=== PATIENT | male | born 1955 | race Caucasian/White ===

== ENCOUNTER 2022-12-12 11:33 | Outpatient (REF) | payer MEDICARE, SELFPAY ==
--- NOTE | ~2022-12-12 | XR_ITS ---
EXAMINATION: XR CHEST CLINICAL INFORMATION: Status post and pneumonia, check for resolution. COMPARISON: None available. TECHNIQUE: 2 views of the chest were obtained. XR/XR chest 2V FINDINGS/IMPRESSION: No prior chest x-rays available for comparison. Small, subtle, patchy upper lung field linear densities suggest minimal atelectasis and/or infiltrates. No effusion or pneumothorax is seen. The cardiovascular structures, mediastinum, diaphragm, bones, and soft tissues appear unremarkable.
[2022-12-12 11:52] LABS: MANUAL DIFF FLAG NO
[2022-12-12 12:11] LABS: Basophils Absolute Auto 0.1 X10*3/uL (0.0-0.2); Basophils Percent Auto 0.7 % (0-2); Eosinophils Absolute Auto 1.1 X10*3/uL (0.0-0.4); Hematocrit 42.9 % (42.0-52.0); Hemoglobin 15.3 g/dl (14.0-18.0); Imm Gran Abs Auto 0.01 X10*3/uL (0.00-0.03); Imm Gran Pct Auto 0.1 % (0.0-0.4); Lymphocytes Absolute Auto 1.6 X10*3/uL (1.2-4.9); Mean Corpuscular HGB Conc 35.7 g/dl (31.0-36.0); Mean Corpuscular Hemoglobin 32.8 pg (27.0-33.0); Mean Corpuscular Volume 91.9 fL (80.0-98.0); Mean Platelet Volume 10.3 fL (9.4-12.4); Monocytes Absolute Auto 0.6 X10*3/uL (0.1-1.2); Neutrophils Absolute Auto 3.7 x10*3/uL (2.0-8.3); Neutrophils Percent Auto 52.2 % (45-73); Platelet Count 272 X10*3/uL (160-400); Red Blood Count 4.67 X10*6/uL (4.60-5.80); Red Cell Distribution Width 12.4 % (11.0-16.0); White Blood Count 7.1 X10*3/uL (4.8-10.8)
[2022-12-12 12:19] LABS: Appearance Urine Clear; Color Urine Yellow; Glucose Urine UA Negative (Negative); Leukocyte Esterase Urine Negative (Negative); Nitrite Urine Negative (Negative); PH 5.5 (5.0-9.0); Urine Blood Negative (Negative); Urine Ketones Negative (Negative); Urine Protein Negative (Neg-Trace)
[2022-12-12 13:04] LABS: Alanine Aminotransferase 28 U/L (0-40); Albumin Level 3.9 g/dL (3.5-5.0); Alkaline Phosphatase 72 U/L (39-117); Anion Gap 13 (12-20); Aspartate Amino Transferase 23 U/L (5-37); Bilirubin Total 0.8 mg/dL (0.0-1.0); Blood Urea Nitrogen 15 mg/dL (9-16); Calcium 9.4 mg/dL (8.4-10.2); Carbon Dioxide 26 mmol/L (22-29); Chloride 106 mmol/L (96-108); Cholesterol 182 mg/dL; Estimated Glomerular Filt Rate > 60; Glucose Random 84 mg/dL (60-115); Potassium 4.1 mmol/L (3.3-5.1); Sodium 141 mmol/L (135-145)
[2022-12-12 13:19] LABS: Prostate Specific Antigen 0.47 ng/mL (<0.05-4.0)
== END 2022-12-12 11:34 | disposition home or self-care (01) ==
LOC: HO.LAB 11:33
PROVIDERS: PCP Internal Medicine; Visit Provider Internal Medicine
DX: Z12.5 Encounter for screening for malignant neoplasm of prostate (principal); R35.1 Nocturia; Z87.01 Personal history of pneumonia (recurrent); Z83.2 Family history of diseases of the blood and blood-forming organs and certain disorders involving the immune mechanism
CPT/HCPCS: 36415; 71046; 80053; 81003; 82465; 84153; 85025

== ENCOUNTER 2023-01-16 16:30 | Outpatient (REF) | payer MEDICARE, SELFPAY ==
[2023-01-16 17:41] LABS: Iron 26 mcg/dL (45-160); Percent Iron Saturation 11 % (15-50); Total Iron Binding Capacity 229 mcg/dL (228-428); Unsaturated Iron Binding 203 ug/dL
[2023-01-16 18:01] LABS: Ferritin 406 ng/mL (20-250)
== END 2023-01-16 16:31 | disposition home or self-care (01) ==
LOC: HO.LAB 16:30
PROVIDERS: PCP Internal Medicine; Visit Provider Internal Medicine
DX: Z13.89 Encounter for screening for other disorder (principal); Z83.49 Family history of other endocrine, nutritional and metabolic diseases
CPT/HCPCS: 36415; 82728; 83540

== ENCOUNTER 2023-03-07 09:52 | Outpatient (AMB) | payer MEDICARE, SELFPAY ==
[2023-03-07 09:56] VITALS: BP 142/88; PULSE 71; O2SAT 94
--- NOTE | 2023-03-07 09:56 | A.OFFVIS_ITS ---
Intake Vital Signs 03/07/23 09:56 Weight 191 lb 12.835 oz BP 142/88 H Blood Pressure Location Lt brachial Position Sitting Pulse 71 Pulse Source Pulse Oximeter Pulse Oximetry (%) 94 Oxygen Delivery Method Room Air Intake Visit Reasons: Abnormal CT Chest Intake Note: productive cough x4 months Allergies No Known Allergies Allergy (Verified 03/07/23 10:00) Medication List - Last Reconciled 03/07/23 by Alisha Rao LPN albuterol sulfate 90 mcg/actuation 2 puffs inhalation Q6H PRN loratadine (Claritin) 10 mg PO DAILY HPI Abnormal CT Chest HPI Details 68-year-old gentleman, lifetime nonsmoke r, with no prior personal family history of lung disease referred for evaluation of productive cough ongoing since approximately September of 2022, productive of moderate amount of yellowish sputum and abnormal CT chest. Patient was treated initially at urgent care with several courses of un specified antibiotics, later by his primary care provider Dr. Borjas with another course of antibiotics with no improvement in his cough. Patient also was started on albuterol MDI as needed with some improvement in his coughing, but not sputum production. Also, in January of [address] chest demonstrating with appears to be a multiple inflammatory/infectious nodules with a dominant to cm nodule. He denies any weight loss. Patient states that since August of 2022 his been working for [employer]. He does complain of intermittent environmental allergies. Review of Systems Const Denies daytime sleepiness, Denies excessive sweating, Denies fatigue, Denies fever(s), Denies lethargy, Denies malaise, Denies night sweats, Denies snoring and Denies weight loss Eyes Denies blurry vision and Denies itchy eyes ENT Denies nasal congestion, Denies post nasal drip, Denies sinus pain, Denies sinus pressure and Denies other ( Thrush) Card Denies chest pain, Denies pedal edema, Denies dyspnea, Denies orthopnea and Denies paroxysmal nocturnal dyspnea Resp Reports cough, Denies hemoptysis, Reports excessive phlegm production, Denies dyspnea, Denies snoring and Denies wheezing GI Denies abdominal pain and Denies heartburn Musc Denies myalgias, Denies arthralgias and Denies joint swelling Skin/Breast Denies rash Neuro Denies memory loss and Denies seizure-like activity Psych Denies abnormal sleep pattern, Denies anxiety and Denies memory loss Endo Denies excessive sweating, Denies fatigue and Denies heat intolerance Herb/Lymph Denies easy bruising Aller/Immun Denies itchy eyes, Denies seasonal rhinorrhea and Denies wheezing Physical Exam Vital Signs: Last Vital Signs Pulse 71 03/07/23 09:56 BP 142/88 H 03/07/23 09:56 Pulse Ox 94 03/07/23 09:56 Oxygen Delivery Method Room Air 03/07/23 09:56 Const General: no acute distress and alert Nutritional Appearance: not obese Orientation/consciousness: Other orientation findings ( oriented) HEENT Head: Yes atraumatic Eyes General: appearance normal, both eyes and all related structures Sclerae: sclerae normal EOM: EOMs intact bilaterally Neck Neck: Yes supple Lymphatic: no lymphadenopathy noted Resp Effort & Inspection: normal respiratory effort and no use of accessory muscles Auscultation: clear to auscultation bilaterally Cardio Rate: regular rate Rhythm: regular rhythm Heart sounds: no gallops, no murmurs and no rubs Skin General skin exam: other ( warm) Extrem General: No clubbing, No cyanosis and No edema Assessment & Plan Assessment & Plan (1) Chronic cough: Code(s): R05.3 - Chronic cough Plan: Appears to have an infectious etiology with poor response to at least 3 courses of empiric antibiotics. Will obtain sputum culture to guide further treatment. (2) Abnormal CT scan, chest: Code(s): R93.89 - Abnormal findings on diagnostic imaging of other specified body structures Plan: Results of CT chest reviewed, appears to have inflammatory/infectious etiology. Will proceed with obtaining respiratory culture and directed antibiotic treatment. Will repeat CT chest 3 months after resolution of symptoms. Coding Level of Care Code New Pt Level 4 (58941) Diagnoses Chronic cough R05.[address] scan, chest R93.89
== END 2023-03-07 10:20 | disposition home or self-care (01) ==
PROVIDERS: PCP Internal Medicine; Visit Provider Internal Medicine Pulmonary Disease
DX: R05.3 Chronic cough (principal); R93.89 Abnormal findings on diagnostic imaging of other specified body structures
CPT/HCPCS: 99204

== ENCOUNTER → 2023-03-07 09:52 | Outpatient (BNVA) | payer MEDICARE, SELFPAY | PROVIDERS: PCP Internal Medicine; Visit Provider Internal Medicine Pulmonary Disease | DX: R05.3 Chronic cough (principal); R39.89 Other symptoms and signs involving the genitourinary system | CPT/HCPCS: 99202 ==

== ENCOUNTER 2023-03-10 13:31 | Outpatient (REF) | payer MEDICARE, SELFPAY | END 2023-03-10 13:32 | disposition home or self-care (01) | LOC: HO.LNP 13:31 | PROVIDERS: Visit Provider Internal Medicine Pulmonary Disease | DX: R05.3 Chronic cough (principal) | CPT/HCPCS: 87070; 87205 ==

== ENCOUNTER → 2023-03-31 15:45 | Outpatient (BNVA) | payer MEDICARE, SELFPAY | PROVIDERS: PCP Internal Medicine; Visit Provider Internal Medicine Pulmonary Disease | DX: R93.89 Abnormal findings on diagnostic imaging of other specified body structures (principal); R05.3 Chronic cough | CPT/HCPCS: 99212 ==

== ENCOUNTER 2023-05-01 08:35 | Day surgery (SDC) | payer MEDICARE, SELFPAY ==
[2023-04-28 16:26] VITALS: BMI 27.1
[2023-04-29 15:06] VITALS: BMI 25.8
--- NOTE | 2023-04-30 09:42 | HO.ANESPROP2 ---
Documented by User: Kaley Vásquez NP 04/30/23 09:45 HPI - Anesthesia Eval Consult details Narrative: 68yo M for Bronchoscopy Fiberoptic PMFSH Active Problems Active Problems: All Active Problems (Updated 04/29/23 @ 15:04 by Elidia Gabriel RN) Abnormal CT scan, chest (Acute) Chronic cough (Acute) Past Medical History Medical History Difficulty swallowing pills Surgical History Surgical History Hx of colonoscopy Social History Social History Are you a primary director of critical care to a significant other at home: No Do you presently have visiting nurse or other home services: No Patient Tobacco Use Status: Never used Tobacco Use of substances other than those prescribed or required for medical reasons: No Have you been hit, kicked, punched, or otherwise hurt by someone within the past year? If so, by whom?: No Are you DNR?: No Advance Directives: No Advance Directives Information Provided: Yes Advance Directives on File: No Nutrition Risks: No Nutritional Risk Poor oral hygiene: No Meds Allergies Allergy/AdvReac Type Severity Reaction Status Date / Time No Known Allergies Allergy Verified 05/01/23 08:46 Home Medications Medication Instructions Recorded Confirmed Last Taken Type loratadine 10 mg chewable tablet 10 mg PO DAILY 03/07/23 04/29/23 05/01/23 History (Claritin) Exam Exam Date and Time: April 30, 2023 0942 Height,Weight and Vital Signs: Height 5 ft 11 in Weight 83.915 kg Pertinent Lab Results Pertinent Lab Results: Laboratory Tests 12/12/22 11:50 WBC 7.1 Hgb 15.3 Hct 42.9 Plt Count 272 Sodium 141 Potassium 4.1 Chloride 106 Carbon Dioxide 26 BUN 15 Creatinine 0.80 Assessment and Plan Assessment Anesthesia Assessment: Chart Reviewed Documented by User: Philomena Reeves MD 05/01/23 09:37 HPI - Anesthesia Eval Consult details Narrative: 68yo M for Fiberoptic Bronchoscopy PMFSH Active Problems Active Problems: All Active Problems (Updated 05/01/23 @ 08:25 by Philomena Reeves MD) Abnormal CT scan, chest (Acute) Chronic cough (Acute)- several courses of antibiotics-cough better but still productive of sputum Past Medical History Medical History Difficulty swallowing pills Family History Family history of problems with anesthesia: No Surgical History Surgical History Hx of colonoscopy History of Problems with Anesthesia: No Social History Social History Are you a primary director of critical care to a significant other at home: No Do you presently have visiting nurse or other home services: No Patient Tobacco Use Status: Never used Tobacco Use of substances other than those prescribed or required for medical reasons: No Have you been hit, kicked, punched, or otherwise hurt by someone within the past year? If so, by whom?: No Are you DNR?: No Advance Directives: No Advance Directives Information Provided: Yes Advance Directives on File: No Nutrition Risks: No Nutritional Risk Poor oral hygiene: No Meds Allergies Allergy/AdvReac Type Severity Reaction Status Date / Time No Known Allergies Allergy Verified 05/01/23 08:46 Home Medications Medication Instructions Recorded Confirmed Last Taken Type loratadine 10 mg chewable tablet 10 mg PO DAILY 03/07/23 04/29/23 05/01/23 History (Claritin) Exam Height,Weight and Vital Signs: Height 5 ft 11 in Weight 83.915 kg Vital Signs Temp Pulse Resp BP Pulse Ox O2 Del Method 05/01/23 08:53 97.8 F 65 18 167/82 H 96 Room Air Airway Mallampati Class: III (Overcrowding of teeth anteriorly with narrow anterior oral cavity) TM Dist: >3cm Neck ROM: Full Loose/Missing/Broken Teeth: Yes (Some missing teeth. Denies broken or loose teeth) Heart: RRR Lungs: CTAB Assessment and Plan Assessment Anesthesia Assessment: Anesthesia Plan Discussed Final Anesthetic Review Family History of Problems with Anesthesia: No History of Problems with Anesthesia: No NPO: Yes ASA Class: II Final Preanesthetic Review: No Changes in Pt Med Stat, Meds/Allgs Chart Reviewed, Consent Obtained/Reviewed and Anes Risks/Benef Reviewed Patient Risk: Low Procedure Risk: Low Assessment/Block/Sedation in SS: Assess/Block/Sedation-SS Anesthetic Plan Anesthetic Plan: GA Disposition: Standard PACU
[2023-05-01] VITALS (8 sets, daily range): BP systolic 116–167; BP diastolic 71–84; PULSE 65–82; RESP 14–20; TEMP 36.6–36.7; O2SAT 95–98
[2023-05-01] MEDS: Lactated Ringers 1,000 ML 100 ML IVCONT (08:52)
--- NOTE | 2023-05-01 09:16 | MHC.SHP ---
Pre-Procedural Eval Section A Date of Service: 05/01/23 The patient is an INPATIENT: No Changes since office visit: Yes Patient answered all questions; No Cold of Flu in the past 2 weeks, No New Medical Problems and No Changes in Medication The History & Physical has been completed within 30 days and I have reviewed it.: Yes Section B Chief Complaint: Chronic cough Allergies: Allergies Allergy/AdvReac Type Severity Reaction Status Date / Time No Known Allergies Allergy Verified 05/01/23 08:46 Plan Diagnosis/Plan: Unchanged I have reviewed the history and physical and performed a pertinent physical examination on my patient. No changes have occurred unless specified. Time Spent With Patient Time: Total time managing care of this patient today ____ minutes.
--- NOTE | 2023-05-01 12:18 | P.BOP_ITS ---
Brief Operative Note Date of Service: 05/01/23 Pre-op diagnosis: Chronic cough Post-op diagnosis: same Procedure: Flexible bronchoscopy performed with the ET tube with patient intubated for the procedure. Bronchoscope advanced through the tracheobronchial tree with visualization of tenacious thick mucus plugs in bilateral upper lobes that were cleared down to segmental level with combined bronchoalveolar lavage obtained and sample sent for microbiologic testing. Underlying bronchial mucosa is normal. No endobronchial lesions noted. Patient tolerated the procedure well and was returned to PACU in stable condition. Surgeon: Carlos Walker MD Anesthesia: GETA Was an Auto Research Engineer used for this Procedure?: No Estimated blood loss (mL): 0 Condition: stable Disposition: PACU
== END 2023-05-01 12:32 | disposition home or self-care (01) ==
PROVIDERS: PCP Internal Medicine; Visit Provider Internal Medicine Pulmonary Disease
PROC: 0BJ08ZZ Inspection of Tracheobronchial Tree, Via Natural or Artificial Opening Endoscopic (ICD-10-PCS; CPT 31622; principal; 2023-05-01 10:00)
DX: R05.3 Chronic cough (principal); R09.3 Abnormal sputum; R93.89 Abnormal findings on diagnostic imaging of other specified body structures; Z79.51 Long term (current) use of inhaled steroids
CPT/HCPCS: 31624; 87070; 87077; 87102; 87116; 87205; 87206; J0171; J0330; J1100; J2250; J2405; J3010

== ENCOUNTER → 2023-05-01 08:35 | Outpatient (BNV) | payer MEDICARE, SELFPAY | PROVIDERS: PCP Internal Medicine; Visit Provider Internal Medicine Pulmonary Disease | DX: R05.3 Chronic cough (principal) | CPT/HCPCS: 31624 ==

== ENCOUNTER 2023-06-17 09:44 | Outpatient (AMB) | payer MEDICARE, SELFPAY ==
--- NOTE | 2023-06-17 09:45 | A.OFFVIS_ITS ---
Intake Vital Signs 06/17/23 09:46 Height 5 ft 11 in Weight 201 lb 11.567 oz BMI 28.1 BP 150/82 H Blood Pressure Location Rt brachial Position Sitting Pulse 67 Pulse Source Doppler Pulse Oximetry (%) 95 Oxygen Delivery Method Room Air Intake Visit Reasons: Chronic cough 4wk f/u Allergies No Known Allergies Allergy (Verified 06/17/23 09:47) HPI Chronic cough 4wk f/u HPI Details 68-year-old gentleman, lifetime nonsmoke r, with no prior personal family history of lung disease referred for evaluation of productive cough ongoing since approximately September of 2022, productive of moderate amount of yellowish sputum and abnormal CT chest. Patient was treated initially at urgent care with several courses of un specified antibiotics, later by his primary care provider Dr. Borjas with another course of antibiotics with no improvement in his cough. Patient also was started on albuterol MDI as needed with some improvement in his coughing, but not sputum production. Also, in January of [address] chest demonstrating with appears to be a multiple inflammatory/infectious nodules with a dominant 2 cm nodule. He denies any weight loss. Patient states that since August of 2022 his been working for [employer]. He does complain of intermittent environmental allergies. After the last office patient had bronchoscopy with bronchoalveolar lavage that is growing Aspergillus. He was started on itraconazole and now completed 3 weeks with some improvement in his symptoms. [facility]LY [facility] Medical History Difficulty swallowing pills Surgical History Hx of colonoscopy Social History (Reviewed 06/17/23 @ 09:48 by Jayashree Savage [facility]) Are you a primary home care associate to a significant other at home: No Do you presently have visiting nurse or other home services: No Comment: NONE Patient Tobacco Use Status: Never used Tobacco Review of Systems Const Denies daytime sleepiness, Denies excessive sweating, Denies fatigue, Denies fever(s), Denies lethargy, Denies malaise, Denies night sweats, Denies snoring and Denies weight loss Eyes Denies blurry vision and Denies itchy eyes ENT Denies nasal congestion, Denies post nasal drip, Denies sinus pain, Denies sinus pressure and Denies other ( Thrush) Card Denies chest pain, Denies pedal edema, Denies dyspnea, Denies orthopnea and Denies paroxysmal nocturnal dyspnea Resp Reports cough, Denies hemoptysis, Denies excessive phlegm production, Denies dyspnea, Denies snoring and Denies wheezing GI Denies abdominal pain and Denies heartburn Musc Denies myalgias, Denies arthralgias and Denies joint swelling Skin/Breast Denies rash Neuro Denies memory loss and Denies seizure-like activity Psych Denies abnormal sleep pattern, Denies anxiety and Denies memory loss Endo Denies excessive sweating, Denies fatigue and Denies heat intolerance Herb/Lymph Denies easy bruising Aller/Immun Denies itchy eyes, Denies seasonal rhinorrhea and Denies wheezing Physical Exam Vital Signs: Last Vital Signs Pulse 67 06/17/23 09:46 BP 150/82 H 06/17/23 09:46 Pulse Ox 95 06/17/23 09:46 Oxygen Delivery Method Room Air 06/17/23 09:46 BMI result Body Mass Index 28.1 Const General: no acute distress and alert Nutritional Appearance: not obese Orientation/consciousness: Other orientation findings ( oriented) HEENT Head: Yes atraumatic Eyes General: appearance normal, both eyes and all related structures Sclerae: sclerae normal EOM: EOMs intact bilaterally Neck Neck: Yes supple Lymphatic: no lymphadenopathy noted Resp Effort & Inspection: normal respiratory effort and no use of accessory muscles Auscultation: clear to auscultation bilaterally Cardio Rate: regular rate Rhythm: regular rhythm Heart sounds: no gallops, no murmurs and no rubs Skin General skin exam: other ( warm) Extrem General: No clubbing, No cyanosis and No edema Assessment & Plan Assessment & Plan (1) Chronic cough: Code(s): R05.3 - Chronic cough Plan: Pulmonary aspergillosis, some improvement after 3 weeks of atrial cortisol, continue for another 3 weeks, will reassess symptoms at that time. (2) Abnormal CT scan, chest: Code(s): R93.89 - Abnormal findings on diagnostic imaging of other specified body structures Plan: Infectious symptoms are not resolved yet, will await resolution of infection symptoms, and then repeat CT scan in 3 months thereafter. Medications: Refilled itraconazole must administer with a meal/food 200 mg (2 x 100 mg) PO BID 112 caps 0RF 28 days Coding Level of Care Code Est Pt Level 4 (35362) Diagnoses Chronic cough R05.[address] scan, chest R93.89
[2023-06-17 09:46] VITALS: BP 150/82; PULSE 67; O2SAT 95; BMI 28.1
== END 2023-06-17 10:02 | disposition home or self-care (01) ==
PROVIDERS: PCP Internal Medicine; Visit Provider Internal Medicine Pulmonary Disease
DX: R05.3 Chronic cough (principal); R93.89 Abnormal findings on diagnostic imaging of other specified body structures
CPT/HCPCS: 99214

== ENCOUNTER → 2023-06-17 09:44 | Outpatient (BNVA) | payer MEDICARE, SELFPAY | PROVIDERS: PCP Internal Medicine; Visit Provider Internal Medicine Pulmonary Disease | DX: R05.3 Chronic cough (principal); R93.89 Abnormal findings on diagnostic imaging of other specified body structures | CPT/HCPCS: 99212 ==

== ENCOUNTER 2023-10-01 13:49 | Outpatient (AMB) | payer MEDICARE, SELFPAY ==
[2023-10-01 13:57] VITALS: BP 114/70; PULSE 53; O2SAT 97; BMI 26.0
--- NOTE | 2023-10-01 13:57 | A.OFFVIS_ITS ---
Intake Vital Signs 10/01/23 13:57 Height 5 ft 11 in Weight 186 lb 4.65 oz BMI 26.0 BP 114/70 Blood Pressure Location Rt brachial Position Sitting Pulse 53 Pulse Source Doppler Pulse Oximetry (%) 97 Oxygen Delivery Method Room Air Intake Visit Reasons: Cough Allergies No Known Allergies Allergy (Verified 06/17/23 09:47) HPI Cough HPI Details 68-year-old gentleman, lifetime nonsmoke r, with no prior personal family history of lung disease referred for evaluation of productive cough ongoing since approximately September of 2022, productive of moderate amount of yellowish sputum and abnormal CT chest. Patient was treated initially at urgent care with several courses of un specified antibiotics, later by his primary care provider Dr. Borjas with another course of antibiotics with no improvement in his cough. Patient also was started on albuterol MDI as needed with some improvement in his coughing, but not sputum production. Also, in January of [address] chest demonstrating with appears to be a multiple inflamm atory/infectious nodules with a dominant 2 cm nodule. He denies any weight loss. Patient states that since August of 2022 his been working for [employer]. He does complain of intermittent environmental allergies. Patient's bronchoalveolar lavage grew Aspergillus. He was started on itraconazole and now reports significant improvement in his symptoms, essentially with resolution of productive cough. [facility] Medical History Difficulty swallowing pills Surgical History Hx of colonoscopy Social History (Reviewed 10/01/23 @ 14:03 by Jayashree Savage [facility]) Are you a primary urgent care physician assistant to a significant other at home: No Do you presently have visiting nurse or other home services: No Comment: NONE Patient Tobacco Use Status: Never used Tobacco Review of Systems Const Denies daytime sleepiness, Denies excessive sweating, Denies fatigue, Denies fever(s), Denies lethargy, Denies malaise, Denies night sweats, Denies snoring, Reports weight loss and Reports other (Poor appetite) Eyes Denies blurry vision and Denies itchy eyes ENT Denies nasal congestion, Denies post nasal drip, Denies sinus pain, Denies sinus pressure and Denies other ( Thrush) Card Denies chest pain, Denies pedal edema, Denies dyspnea, Denies orthopnea and Denies paroxysmal nocturnal dyspnea Resp Denies cough, Denies hemoptysis, Denies excessive phlegm production, Denies dyspnea, Denies snoring and Denies wheezing GI Denies abdominal pain and Denies heartburn Musc Denies myalgias, Denies arthralgias and Denies joint swelling Skin/Breast Reports rash (Ulcerative lesion above right medial malleolus) Neuro Denies memory loss and Denies seizure-like activity Psych Denies abnormal sleep pattern, Denies anxiety and Denies memory loss Endo Denies excessive sweating, Denies fatigue and Denies heat intolerance Herb/Lymph Denies easy bruising Aller/Immun Denies itchy eyes, Denies seasonal rhinorrhea and Denies wheezing Physical Exam Vital Signs: Last Vital Signs Pulse 53 10/01/23 13:57 BP 114/70 10/01/23 13:57 Pulse Ox 97 10/01/23 13:57 Oxygen Delivery Method Room Air 10/01/23 13:57 BMI result Body Mass Index 26.0 Const General: no acute distress and alert Nutritional Appearance: not obese Orientation/consciousness: Other orientation findings ( oriented) HEENT Head: Yes atraumatic Eyes General: appearance normal, both eyes and all related structures Sclerae: sclerae normal EOM: EOMs intact bilaterally Neck Neck: Yes supple Lymphatic: no lymphadenopathy noted Resp Effort & Inspection: normal respiratory effort and no use of accessory muscles Auscultation: clear to auscultation bilaterally Cardio Rate: regular rate Rhythm: regular rhythm Heart sounds: no gallops, no murmurs and no rubs Skin General skin exam: other ( warm) Extrem General: No clubbing, No cyanosis, No edema and Yes other (Ulcerative erythema nodosum like lesion above right medial malleolus) Assessment & Plan Assessment & Plan (1) Chronic cough: Code(s): R05.3 - Chronic cough Plan: Aspergillosis, improved significantly on itraconazole. Will discontinue and monitor off antifungal. (2) Abnormal CT scan, chest: Code(s): R93.89 - Abnormal findings on diagnostic imaging of other specified body structures Plan: Will repeat CT chest after resolution of Aspergillus symptoms in few weeks. Orders: Orders CT chest wo IV con 10/13/23 R93.89 - Abnormal findings on diagnostic imaging of other specified body structures Coding Level of Care Code Est Pt Level 4 (31441) Diagnoses Chronic cough R05.[address] scan, chest R93.89
== END 2023-10-01 14:22 | disposition home or self-care (01) ==
PROVIDERS: PCP Internal Medicine; Visit Provider Internal Medicine Pulmonary Disease
DX: R05.3 Chronic cough (principal); R93.89 Abnormal findings on diagnostic imaging of other specified body structures
CPT/HCPCS: 99214

== ENCOUNTER → 2023-10-01 13:49 | Outpatient (BNVA) | payer MEDICARE, SELFPAY | PROVIDERS: PCP Internal Medicine; Visit Provider Internal Medicine Pulmonary Disease | DX: R93.89 Abnormal findings on diagnostic imaging of other specified body structures (principal); R05.3 Chronic cough | CPT/HCPCS: 99212 ==

== ENCOUNTER 2023-11-07 15:24 | Outpatient (REF) | payer MEDICARE, SELFPAY ==
--- NOTE | ~2023-11-07 | CT_ITS ---
EXAMINATION: CT CHEST WITHOUT CONTRAST CLINICAL INFORMATION: Follow-up tree-in-bud nodularity. COMPARISON: Chest radiographs dated 12/12/[address] chest dated 02/04/2023. TECHNIQUE: Multidetector volumetric CT imaging of the chest was done. Axial MIP volume rendering provided. Sagittal and coronal reformatted images were obtained. This CT examination was performed using dose optimization techniques as appropriate, variously including the following: *Automated exposure control *Adjustment of mA and/or kV according to patient size (this includes techniques or standardized protocols for targeted exams where dose is matched to indication/reason for exam; i.e. extremities or head) *Use of iterative reconstruction technique DLP: 181 mGy-cm FINDINGS: NAIL MILL WORKER: The lungs are symmetrically well-expanded and grossly clear. LUNGS: There is persistent tree-in-bud nodularity within the posterior segment of the right upper lobe. One of the largest of these nodules measures 8 mm (7:192). At the posterior right base (7:396), a 5 mm noncalcified, pleural-based lymph node is seen. Within the lingula, a benign, calcified granuloma is seen. At the posterolateral left base (7:336), a 1 mm noncalcified subpleural nodule is seen. There are are scattered groundglass opacities within the right upper and lower lobes and medially within the left upper lobe. There is generalized small airway thickening. The central airways appear patent. MEDIASTINUM: The thyroid is unremarkable. The ascending thoracic aorta is ectatic, measuring 4.3 x 4.3 cm (3:34). There is mild atherosclerotic calcification of the great vessel origins and thoracic aorta. There is no sizable mediastinal or hilar lymphadenopathy. CORONARY ARTERY CALCIFICATION: Very mild. PLEURA: There is no pleural effusion. No pleural mass or thickening. AXILLA: No lymphadenopathy. UPPER ABDOMEN: Unremarkable. OSSEOUS STRUCTURES: There is multi-level thoracic degenerative disc disease, with vacuum disc phenomenon. There is a stable slight T8 upper endplate wedge compression fracture. 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 No acute or aggressive osseous finding is noted. CT/CT chest wo IV con IMPRESSION: 1. There is interim overall improvement in bilateral tree-in-bud nodularity, with some persistent tree-in-bud nodularity remaining within the posterior segment of the right upper lobe. There is associated focal small airway thickening, suggesting small airways disease secondary to an infectious or inflammatory process. One of the largest of these tree-in-bud nodules measures 8 mm. According to the UPDATED 2017 Fleischner Society recommendations, the advised follow-up imaging for multiple solid nodules, the largest measuring 6 mm or greater, is: LOW RISK PATIENT: CT at 3-6 months, then consider CT at 18-24 months. HIGH RISK PATIENT: CT at 3-6 months, then at 18-24 months. 2. There are increased scattered groundglass opacities within the right upper and lower lobes and medially within the left upper lobe. These groundglass opacities are as well likely infectious or inflammatory in etiology. Recommend clinical correlation and continued attention on imaging follow-up. 3. No thoracic lymphadenopathy or pleural effusion is seen. 4. There is stable ectasia of the ascending thoracic aorta, without marcos aneurysm formation. 5. There are again degenerative changes of the thoracic spine. No aggressive osseous lesion is seen. Fleischner guidelines were followed.
== END 2023-11-07 15:25 | disposition home or self-care (01) ==
LOC: HO.CT 15:24
PROVIDERS: PCP Internal Medicine; Visit Provider Internal Medicine Pulmonary Disease
DX: R93.89 Abnormal findings on diagnostic imaging of other specified body structures (principal)
CPT/HCPCS: 71250

== ENCOUNTER 2023-12-04 14:21 | Outpatient (AMB) | payer MEDICARE, SELFPAY ==
--- NOTE | 2023-12-04 14:22 | MHC.OFFVIS ---
Vital Signs 12/04/23 14:23 Height 5 ft 11 in Weight 176 lb BMI 24.5 BP 140/72 H Blood Pressure Location Rt brachial Position Sitting Pulse 68 Pulse Source Doppler Pulse Oximetry (%) 97 Oxygen Delivery Method Room Air Intake Visit Reasons: Cough Allergies No Known Allergies Allergy (Verified 06/17/23 09:47) HPI HPI Cough: Details: 68-year-old gentleman, lifetime nonsmoker, with no prior personal family history of lung disease referred for evaluation of productive cough ongoing since approximately September of 2022, productive of moderate amount of yellowish sputum and abnormal CT chest. Patient was treated initially at urgent care with several courses of an unspecified antibiotics, later by his primary care provider Dr. Borjas with another course of antibiotics with no improvement in his cough. Patient also was started on albuterol MDI as needed with some improvement in his coughing, but not sputum production. Also, in January of [address] chest demonstrating with appears to be a multiple inflammatory/infectious nodules with a dominant 2 cm nodule. Patient had bronchoscopy with bronchoalveolar lavage that grew Aspergillus. He has been treated with a course of itraconazole with resolution his symptoms and significant improvement on follow-up CT chest. [facility] Medical History Difficulty swallowing pills Surgical History Hx of colonoscopy Social History Are you a primary acute care assistant to a significant other at home: No Do you presently have visiting nurse or other home services: No Comment: NONE Patient Tobacco Use Status: Never used Tobacco Review of Systems Card Denies dyspnea and Denies dyspnea on exertion Resp Denies chest congestion, Denies excessive phlegm production, Denies dyspnea, Denies dyspnea on exertion and Denies wheezing Aller/Immun Denies wheezing Physical Exam Vital Signs: Last Vital Signs Pulse 68 12/04/23 14:23 BP 140/72 H 12/04/23 14:23 Pulse Ox 97 12/04/23 14:23 Oxygen Delivery Method Room Air 12/04/23 14:23 BMI result Body Mass Index 24.5 Const General: no acute distress and alert Nutritional Appearance: not obese Orientation/consciousness: Other orientation findings ( oriented) HEENT Head: Yes atraumatic Eyes General: appearance normal, both eyes and all related structures Sclerae: sclerae normal EOM: EOMs intact bilaterally Neck Neck: Yes supple Lymphatic: no lymphadenopathy noted Resp Effort & Inspection: normal respiratory effort and no use of accessory muscles Auscultation: clear to auscultation bilaterally Cardio Rate: regular rate Rhythm: regular rhythm Heart sounds: no gallops, no murmurs and no rubs Skin General skin exam: other ( warm) Extrem General: No clubbing, No cyanosis and No edema Assessment & Plan Assessment & Plan (1) Abnormal CT scan, chest: Code(s): R93.89 - Abnormal findings on diagnostic imaging of other specified body structures Category: Medical (2) Chronic cough: Code(s): R05.3 - Chronic cough Category: Medical (3) Aspergillus: Code(s): B44.9 - Aspergillosis, unspecified Category: Medical Plan symptoms resolved with the truck on azole therapy and has not recurred after its discontinuation. CT chest imaging reviewed and does not demonstrate significant pulmonary nodules. Official read is pending. Will monitor off antifungal at this time. Coding Level of Care Code Est Pt Level 4 (91420) Diagnoses Abnormal CT scan, chest R93.89 Chronic cough R05.3 Aspergillus B44.9
[2023-12-04 14:23] VITALS: BP 140/72; PULSE 68; O2SAT 97; BMI 24.5
== END 2023-12-04 14:38 | disposition home or self-care (01) ==
PROVIDERS: PCP Internal Medicine; Visit Provider Internal Medicine Pulmonary Disease
DX: R93.89 Abnormal findings on diagnostic imaging of other specified body structures (principal); R05.3 Chronic cough; B44.9 Aspergillosis, unspecified
CPT/HCPCS: 99214

== ENCOUNTER → 2023-12-04 14:21 | Outpatient (BNVA) | payer MEDICARE, SELFPAY | PROVIDERS: PCP Internal Medicine; Visit Provider Internal Medicine Pulmonary Disease | DX: R93.89 Abnormal findings on diagnostic imaging of other specified body structures (principal); R05.3 Chronic cough; B44.9 Aspergillosis, unspecified | CPT/HCPCS: 99212 ==